=== PATIENT | male | born 1985 ===

== ENCOUNTER 2021-02-24 17:06 | Outpatient (REF) | payer BC, SELFPAY ==
[2021-02-24 22:30] LABS: ALT 24 U/L (16-63); AST 14 U/L (15-37); Albumin 4.6 g/dL (3.4-5.0); Alkaline Phosphatase 75 U/L (46-116); BUN 16 mg/dL (7-18); Bilirubin, Total 0.5 mg/dL (0.2-1.0); CREATININE 1.4 mg/dL (0.70-1.30); Calcium 9.4 mg/dL (8.5-10.1); Calculated LDL 152 mg/dL (<100); Chloride 104 mmol/L (98-107); Cholesterol 217 mg/dL (<200); Estimated GFR 58.37 (mL/min/1.73m2); Glucose 77 mg/dL (74-106); HDL Cholesterol 37 mg/dL (40-60); Potassium 4.3 mmol/L (3.5-5.1); Sodium 142 mmol/L (136-145); Total Protein 7.7 g/dL (6.4-8.2); Triglyceride 143 mg/dL (<150)
[2021-02-26 10:19] LABS: Hepatitis C Ab w Rflx HCV PCR Negative (Negative)
[2021-02-26 11:20] LABS: Syphilis Serology (RPR) Negative (Negative)
[2021-02-26 11:40] LABS: HIV-1/2 Ag & Ab Screen Negative (Negative)
[2021-02-26 15:25] LABS: Chlamydia Result Negative (Negative); GC Result Negative (Negative)
== END 2021-02-24 17:07 | disposition home or self-care (01) ==
LOC: NCHCN 17:06
PROVIDERS: Visit Provider Nurse Practitioner Family
DX: Z11.3 Encounter for screening for infections with a predominantly sexual mode of transmission (principal); Z11.4 Encounter for screening for human immunodeficiency virus [HIV]; Z11.59 Encounter for screening for other viral diseases; Z00.00 Encounter for general adult medical examination without abnormal findings
CPT/HCPCS: 80053; 80061; 86803; 87389; 87491; 87591; 86592

== ENCOUNTER 2021-03-18 12:44 | Outpatient (REF) | payer BC, SELFPAY ==
[2021-03-18 21:56] LABS: CREATININE 1.1 mg/dL (0.70-1.30)
== END 2021-03-18 12:45 | disposition home or self-care (01) ==
LOC: NCHCN 12:44
PROVIDERS: Visit Provider Nurse Practitioner Family
DX: R94.4 Abnormal results of kidney function studies (principal)
CPT/HCPCS: 82565